=== PATIENT | male | born 2000 | race Caucasian/White ===

== ENCOUNTER 2019-09-07 00:37 | Emergency (ER) | payer SELFPAY ==
[~2019-09-07] VITALS: Ht 185.4 cm; Wt 86.4 kg
[~2019-09-07 00:37] MED LIST: MEDIDATE; NO HOME MEDICATIONS; PERCOCET 325 MG1 TA2 PO; PREDNISONE20 MG PO; RT ADVAIR 228 DISKUS IH
[2019-09-07 00:38] VITALS: BP 106/66; TEMP 98.1
[2019-09-07 03:43] LABS: BASO # 0.1 (0.0-0.2); BASO % 0.7 % (0.0-2.0); EOS % 0.4 % (0-4.0); GRAN # 5.1 (1.4-6.5); GRAN % 60.4 % (42.2-75.2); HEMATOCRIT 42.4 % (42.0-52.0); HEMOGLOBIN 14.5 g/dl (13.5-18.0); LYMPH # 2.7 (1.2-3.4); LYMPH % 32.3 % (20.0-51.0); MEAN CELL VOLUME 84 fl (80.0-100.0); MEAN CORPUSCULAR HEMOGLOBIN 29 pg (27.0-31.0); MEAN CORPUSCULAR HGB CONC 34 g/dl (33.0-37.0); MEAN PLATELET VOLUME 10.3 fl (7.4-10.4); MONO # 0.5 (0.1-0.6); MONO % 5.7 % (1.7-9.3); PLATELET COUNT 317 K/mm3 (130-400); RED BLOOD COUNT 5.04 M/mm3 (4.20-5.60); REDCELL DISTRIBUTION WIDTH-CV 12.5 % (11.5-14.5)
[2019-09-07 03:48] LABS: ALBUMIN 4.6 gm/dL (3.5-5.0); BILIRUBIN,TOTAL 0.4 mg/dL (0.0-1.0); CREATININE, serum 0.65 (0.66-1.25); TOTAL PROTEIN 8.1 gm/dL (6.4-8.2)
[2019-09-07 03:55] VITALS: PULSE 66
== END 2019-09-07 03:56 | disposition short-term general hospital (02) ==
LOC: COL.ER 00:37
PROVIDERS: Physician Assistant
DX: S06.5X9A Traumatic subdural hemorrhage with loss of consciousness of unspecified duration, initial encounter (principal); S06.6X9A Traumatic subarachnoid hemorrhage with loss of consciousness of unspecified duration, initial encounter; Y09 Assault by unspecified means
CPT/HCPCS: J1953; J2405; J7030